=== PATIENT | female | born 1930 | race Caucasian/White ===

== ENCOUNTER → 2017-01-05 | Outpatient (CLI) | payer MEDICARE ==
[~2017-01-05] MED LIST: ASPIRIN325 M2 PO; ASPIRIN325 MG PO; ATENOLOL25 MG PO; ESTER-C 500 MG1 EACH PO; FISH OIL500 M1 PO; HYDR12.5C PO; HYDROCHLOROTH12.5 M3 PO; LIPITOR80 MG PO; NORVASC2.5 MG PO; RANITIDINE 7575 MG PO; RANITIDINE HCL300 M2 PO; TENORMIN25 M1 PO; VITAMIN D400 IU PO; VITAMIN D400 UNI1 PO
[2017-01-05 08:15] LABS: BASO % 0.5 % (0.0-1.0); EOS # 0.2 10*3/uL (0.0-0.4); EOS % 2.4 % (1.0-4.0); HEMATOCRIT 37.7 % (37.0-47.0); HEMOGLOBIN 12.3 g/dl (12.0-16.0); LYMPH # 3.6 10*3/uL (1.3-4.4); LYMPH % 47.1 % (27.0-41.0); MEAN CELL VOLUME 91.3 fl (81.0-99.0); MEAN CORPUSCULAR HGB 29.8 pg (27.0-31.0); MEAN CORPUSCULAR HGB CONC 32.6 g/dl (33.0-37.0); MONO # 0.5 10*3/uL (0.1-1.0); MONO % 6.6 % (3.0-9.0); NEUT # 3.3 10*3/uL (2.3-7.9); NEUT % 43.1 % (47.0-73.0); PLATELET COUNT AUTOMATED 153 10*3/uL (130-400); RED BLOOD COUNT 4.13 10*6/uL (4.10-5.10); RED CELL DISTRI WIDTH 14.1 % (0-14.5); WHITE BLOOD COUNT 7.5 10*3/uL (4.8-10.8)
[2017-01-05 08:43] LABS: ALBUMIN 3.8 gm/dl (3.1-4.5); ALKALINE PHOSPHATASE 65 U/L (45-117); BILIRUBIN, TOTAL 1.3 mg/dl (0.2-1.0); BUN 22 mg/dl (7-24); CARBON DIOXIDE 30 mmol/L (21-32); CHLORIDE 106 mmol/L (98-107); CHOLESTEROL 141 mg/dL (<200); CPK 291 U/L (26-192); EST GLOM FILT AFRICAN AMERICAN > 60 ml/min; GLUCOSE 98 mg/dL (65-99); HDL CHOLESTEROL 68 mg/dl (40-60); LDH 250 U/L (84-246); LDL CHOLESTEROL 55 mg/dL (9-159); SGOT/AST 24 IU/L (3-35); SGPT/ALT 32 U/L (12-78); SODIUM 142 mmol/L (136-145); TOTAL PROTEIN 6.6 gm/dL (6.4-8.2); TRIGLYCERIDES 90 mg/dl (<150); VLDL CHOLESTEROL 18 mg/dL (6-40)
== END | disposition home or self-care (01) ==
LOC: LAB 07:50
PROVIDERS: Internal Medicine Hematology & Oncology
DX: E78.00 Pure hypercholesterolemia, unspecified (principal); C85.81 Other specified types of non-Hodgkin lymphoma, lymph nodes of head, face, and neck; I25.10 Atherosclerotic heart disease of native coronary artery without angina pectoris; I10 Essential (primary) hypertension

== ENCOUNTER → 2017-08-06 | Outpatient (CLI) | payer MEDICARE | END | disposition home or self-care (01) | LOC: MAMMO 08:00 | DX: Z12.31 Encounter for screening mammogram for malignant neoplasm of breast (principal) ==

== ENCOUNTER → 2018-02-04 | Outpatient (CLI) | payer MEDICARE ==
[2018-02-04 08:14] LABS: HEMATOCRIT 38.3 % (37.0-47.0); HEMOGLOBIN 12.5 g/dl (12.0-16.0); MEAN CORPUSCULAR HGB 29.7 pg (27.0-31.0); MEAN CORPUSCULAR HGB CONC 32.6 g/dl (33.0-37.0); MEAN PLATELET VOLUME 10.7 fl (9.6-12.3); PLATELET COUNT AUTOMATED 151 10*3/uL (130-400); RED BLOOD COUNT 4.21 10*6/uL (4.10-5.10); RED CELL DISTRI WIDTH 13.9 % (0-14.5); WHITE BLOOD COUNT 10.1 10*3/uL (4.8-10.8)
[2018-02-04 09:21] LABS: CHLORIDE 105 mmol/L (98-107); POTASSIUM 3.7 mmol/L (3.5-5.1); SODIUM 140 mmol/L (136-145)
[2018-02-04 09:37] LABS: TOTAL CELLS COUNTED 100 #CELLS
[2018-02-04 09:39] LABS: PLATELET SUFFICIENCY NORMAL (NORMAL)
[2018-02-04 09:40] LABS: ALBUMIN 3.8 gm/dl (3.1-4.5); ALKALINE PHOSPHATASE 73 U/L (45-117); BUN 19 mg/dl (7-24); CHOLESTEROL 134 mg/dL (<200); CPK 344 U/L (26-192); CREATININE 0.61 mg/dL (0.55-1.02); HDL CHOLESTEROL 53 mg/dl (40-60); LDH 259 U/L (84-246); LDL CHOLESTEROL 59 mg/dL (9-159); SGOT/AST 27 IU/L (3-35); SGPT/ALT 33 U/L (12-78); TOTAL PROTEIN 6.5 gm/dL (6.4-8.2); TRIGLYCERIDES 110 mg/dl (<150); VLDL CHOLESTEROL 22 mg/dL (6-40)
== END | disposition home or self-care (01) ==
LOC: LAB 07:47
PROVIDERS: Internal Medicine Hematology & Oncology
DX: I10 Essential (primary) hypertension (principal); R73.9 Hyperglycemia, unspecified; E78.00 Pure hypercholesterolemia, unspecified; C85.81 Other specified types of non-Hodgkin lymphoma, lymph nodes of head, face, and neck

== ENCOUNTER → 2018-05-01 | Outpatient (CLI) | payer MEDICARE | END | disposition home or self-care (01) | LOC: US 10:31 | DX: M71.20 Synovial cyst of popliteal space [Baker], unspecified knee (principal) ==

== ENCOUNTER → 2018-08-18 | Outpatient (CLI) | payer MEDICARE ==
[2018-08-18 08:49] LABS: HEMATOCRIT 39.3 % (37.0-47.0); HEMOGLOBIN 12.8 g/dl (12.0-16.0); MEAN CELL VOLUME 92.3 fl (81.0-99.0); MEAN CORPUSCULAR HGB CONC 32.6 g/dl (33.0-37.0); PLATELET COUNT AUTOMATED 162 10*3/uL (130-400); RED BLOOD COUNT 4.26 10*6/uL (4.10-5.10); RED CELL DISTRI WIDTH 14.1 % (0-14.5); WHITE BLOOD COUNT 11.1 10*3/uL (4.8-10.8)
[2018-08-18 09:20] LABS: BUN 17 mg/dl (7-24); CHLORIDE 104 mmol/L (98-107); CREATININE 0.52 mg/dL (0.55-1.02); POTASSIUM 3.8 mmol/L (3.5-5.1); SODIUM 139 mmol/L (136-145)
[2018-08-18 09:49] LABS: ATYPICAL LYMPHS 2 % (0-0); BASOPHILS 1 % (0-1); PLATELET SUFFICIENCY NORMAL (NORMAL); TOTAL CELLS COUNTED 100 #CELLS
== END | disposition home or self-care (01) ==
LOC: LAB 08:12
PROVIDERS: Family Medicine; Internal Medicine Hematology & Oncology
DX: C85.81 Other specified types of non-Hodgkin lymphoma, lymph nodes of head, face, and neck (principal); R73.9 Hyperglycemia, unspecified

== ENCOUNTER → 2019-02-07 | Outpatient (CLI) | payer MEDICARE ==
[2019-02-07 09:38] LABS: HEMATOCRIT 42.3 % (37.0-47.0); HEMOGLOBIN 13.8 g/dl (12.0-16.0); MEAN CELL VOLUME 93.6 fl (81.0-99.0); MEAN CORPUSCULAR HGB 30.5 pg (27.0-31.0); MEAN CORPUSCULAR HGB CONC 32.6 g/dl (33.0-37.0); MEAN PLATELET VOLUME 11.2 fl (9.6-12.3); PLATELET COUNT AUTOMATED 217 10*3/uL (130-400); RED BLOOD COUNT 4.52 10*6/uL (4.10-5.10); RED CELL DISTRI WIDTH 13.9 % (0-14.5)
[2019-02-07 09:59] LABS: CHLORIDE 103 mmol/L (98-107); POTASSIUM 4.4 mmol/L (3.5-5.1); SODIUM 137 mmol/L (136-145)
[2019-02-07 10:11] LABS: PLATELET SUFFICIENCY NORMAL (NORMAL); TOTAL CELLS COUNTED 100 #CELLS
[2019-02-07 10:13] LABS: WHITE BLOOD COUNT 37.9 10*3/uL (4.8-10.8)
[2019-02-07 10:19] LABS: ALBUMIN 4.1 gm/dl (3.1-4.5); ALKALINE PHOSPHATASE 89 U/L (45-117); BUN 26 mg/dl (7-24); CREATININE 0.62 mg/dL (0.55-1.02); LDH 228 U/L (84-246); SGOT/AST 20 IU/L (3-35); SGPT/ALT 35 U/L (12-78); TOTAL PROTEIN 7.1 gm/dL (6.4-8.2)
[2019-02-07 10:36] LABS: CHOLESTEROL 148 mg/dL (<200); HDL CHOLESTEROL 67 mg/dl (40-60); LDL CHOLESTEROL 68 mg/dL (9-159); TRIGLYCERIDES 65 mg/dl (<150); VLDL CHOLESTEROL 13 mg/dL (6-40)
== END | disposition home or self-care (01) ==
LOC: LAB 08:52
PROVIDERS: Family Medicine; Internal Medicine Hematology & Oncology
DX: C85.81 Other specified types of non-Hodgkin lymphoma, lymph nodes of head, face, and neck (principal); I10 Essential (primary) hypertension; E78.00 Pure hypercholesterolemia, unspecified; R73.9 Hyperglycemia, unspecified

== ENCOUNTER → 2019-05-09 | Outpatient (CLI) | payer MEDICARE ==
[2019-05-09 09:16] LABS: HEMATOCRIT 36.8 % (37.0-47.0); HEMOGLOBIN 11.6 g/dl (12.0-16.0); MEAN CORPUSCULAR HGB CONC 31.5 g/dl (33.0-37.0); MEAN PLATELET VOLUME 11.2 fl (9.6-12.3); PLATELET COUNT AUTOMATED 134 10*3/uL (130-400); WHITE BLOOD COUNT 11.2 10*3/uL (4.8-10.8)
[2019-05-09 09:55] LABS: BURR CELLS FEW; TOTAL CELLS COUNTED 100 #CELLS
[2019-05-09 09:56] LABS: ACANTHOCYTES FEW; PLATELET SUFFICIENCY NORMAL (NORMAL)
== END | disposition home or self-care (01) ==
LOC: LAB 08:19
PROVIDERS: Internal Medicine Hematology & Oncology
DX: C85.81 Other specified types of non-Hodgkin lymphoma, lymph nodes of head, face, and neck (principal); C91.90 Lymphoid leukemia, unspecified not having achieved remission

== ENCOUNTER → 2019-07-20 | Outpatient (CLI) | payer MEDICARE ==
[~2019-07-20] MED LIST changes: +PEPCID20 MG PO
== END | disposition home or self-care (01) ==
LOC: CARD 09:48
DX: M25.50 Pain in unspecified joint (principal)

== ENCOUNTER → 2019-08-09 | Outpatient (CLI) | payer MEDICARE ==
--- NOTE | ~2019-08-09 | ST ---
[place], [place] EXERCISE STRESS TEST REPORT [id number] UN[facility] #: [id number] ROOM: DOCTOR: ASPEN SNYDER MD BIRTHDATE: [birth year] DOS: 08/09/2019 LEXISCAN PORTION OF THE LEXISCAN CARDIOLITE Baseline cardiogram, atrial fibrillation, slightly rapid ventricular response 0.4 mg of Lexiscan, duration of 10 seconds. Heart rate went up to 130. No chest discomfort. No other new EKG changes other than underlying atrial fibrillation. Blood pressure and heart rate normal. Nuclear will be reported separately. ASPEN SNYDER MD CM:STRESS:EXERCISE STRESS TEST REPORT [id number] ASPEN SNYDER MD
--- NOTE | 2019-08-09 07:05 | NUR ---
INFORMED SIGNED CONSENT OBTAINED FOR LEXISCAN STRESS TEST WITHSeamus SNYDER. RESTING EKG AFIB HR 91 BP 120/60. PULSE OX 99% LUNGS CLEAR. PT COMPLETED ONE MINUTE OF A LEXISCAN PROTOCOL WITH PT RECEIVING LEXISCAN 0.4MG IV OVER 10 SECONDS. RARE PVC NOTED NON DIAGNOSTIC ST CHANGES SEEN. PT FELT A LITTLE JITTERY WITH INJECTION. LAST RECOVERY HR OF 107 BP 110/54. PT IN STABLE CONDITION, AWAITING NUCLEAR IMAGES.
[2019-08-09 08:55] LABS: HEMATOCRIT 39.9 % (37.0-47.0); HEMOGLOBIN 12.4 g/dl (12.0-16.0); MEAN CELL VOLUME 90.1 fl (81.0-99.0); MEAN CORPUSCULAR HGB CONC 31.1 g/dl (33.0-37.0); MEAN PLATELET VOLUME 10.6 fl (9.6-12.3); PLATELET COUNT AUTOMATED 150 10*3/uL (130-400); RED BLOOD COUNT 4.43 10*6/uL (4.10-5.10); RED CELL DISTRI WIDTH 15.4 % (0-14.5); WHITE BLOOD COUNT 14.6 10*3/uL (4.8-10.8)
[2019-08-09 09:18] LABS: ALBUMIN 4.1 gm/dl (3.1-4.5); ALKALINE PHOSPHATASE 74 U/L (45-117); BUN 12 mg/dl (7-24); CHLORIDE 104 mmol/L (98-107); CREATININE 0.51 mg/dL (0.55-1.02); POTASSIUM 3.6 mmol/L (3.5-5.1); SGOT/AST 26 IU/L (3-35); SGPT/ALT 37 U/L (12-78); SODIUM 140 mmol/L (136-145); TOTAL PROTEIN 6.7 gm/dL (6.4-8.2)
[2019-08-09 09:21] LABS: LDH 266 U/L (84-246)
[2019-08-09 09:38] LABS: ACANTHOCYTES FEW; ATYPICAL LYMPHS 5 % (0-0); BASOPHILS 1 % (0-1); OVALOCYTES FEW; PLATELET SUFFICIENCY NORMAL (NORMAL); TOTAL CELLS COUNTED 100 #CELLS
== END | disposition home or self-care (01) ==
LOC: CARD 00:51 → LAB 00:51 → CARD 10:00
PROVIDERS: Internal Medicine Cardiovascular Disease
DX: I48.91 Unspecified atrial fibrillation (principal); R94.31 Abnormal electrocardiogram [ECG] [EKG]

== ENCOUNTER → 2019-08-12 | Outpatient (CLI) | payer MEDICARE | END | disposition home or self-care (01) | LOC: CT 00:17 | DX: C91.90 Lymphoid leukemia, unspecified not having achieved remission (principal); C85.81 Other specified types of non-Hodgkin lymphoma, lymph nodes of head, face, and neck; K80.20 Calculus of gallbladder without cholecystitis without obstruction; J90 Pleural effusion, not elsewhere classified; D73.4 Cyst of spleen; K76.89 Other specified diseases of liver; R59.9 Enlarged lymph nodes, unspecified ==

== ENCOUNTER 2019-09-29 09:29 | Inpatient (IN) | payer MEDICARE ==
[~2019-09-29] VITALS: Ht 163 cm; Wt 70.9 kg
[~2019-09-29 09:29] MED LIST changes: -ASPIRIN325 M2 PO; +GOOD SENSE ASPI81 M1 PO; +VITAMIN D250 MCG PO; -VITAMIN D400 IU PO
[2019-09-29 09:48] VITALS: BP 140/63
[2019-09-29 10:02] LABS: HEMATOCRIT 36.8 % (37.0-47.0); HEMOGLOBIN 12.1 g/dl (12.0-16.0); MEAN CELL VOLUME 88.7 fl (81.0-99.0); MEAN CORPUSCULAR HGB 29.2 pg (27.0-31.0); MEAN CORPUSCULAR HGB CONC 32.9 g/dl (33.0-37.0); MEAN PLATELET VOLUME 10.4 fl (9.6-12.3); PLATELET COUNT AUTOMATED 197 10*3/uL (130-400); RED BLOOD COUNT 4.15 10*6/uL (4.10-5.10); RED CELL DISTRI WIDTH 16.2 % (0-14.5); WHITE BLOOD COUNT 16.4 10*3/uL (4.8-10.8)
[2019-09-29 10:10] LABS: ACT PARTIAL THROMBO TIME 28.2 SECONDS (20.0-32.1); INTERNATIONAL NORM RATIO 1.1 (2.0-3.5)
[2019-09-29 10:19] LABS: ALKALINE PHOSPHATASE 78 U/L (45-117); BUN 12 mg/dl (7-24); CHLORIDE 97 mmol/L (98-107); POTASSIUM 3.5 mmol/L (3.5-5.1); SGOT/AST 24 IU/L (3-35); SGPT/ALT 37 U/L (12-78); SODIUM 130 mmol/L (136-145); TOTAL PROTEIN 6.4 gm/dL (6.4-8.2)
[2019-09-29 10:20] LABS: TROPONIN I < 0.015 ng/ml (<0.045)
[2019-09-29 10:22] LABS: ATYPICAL LYMPHS 3 % (0-0); BASOPHILS 1 % (0-1); TOTAL CELLS COUNTED 100 #CELLS
[2019-09-29 10:23] LABS: BURR CELLS FEW; PLATELET SUFFICIENCY NORMAL (NORMAL); SCHISTOCYTES FEW
[2019-09-29 10:24] LABS: OVALOCYTES FEW
--- NOTE | 2019-09-29 10:48 | NUR ---
BED ASSIGNED 419. THE ROOM NEEDS CLEANED, NSG TEMPORARY ADMINISTRATIVE ASSISTANT STATES STAFF WILL CALL ME WHEN THE ROOM IS AVAILIBLE.
[2019-09-29 11:00] VITALS: BP 136/60
--- NOTE | 2019-09-29 11:35 | NUR ---
STILL AWAITING RETURN CALL FOR BED AVAILIBILITY FOR ADMIT.
[2019-09-29 12:00] VITALS: BP 139/70
[2019-09-29 12:15] VITALS: BP 139/70
--- NOTE | 2019-09-29 12:15 | NUR ---
A 89, admitted to , under the services of CRISTEL Jimenez MD with a diagnosis of RECURRENT LEFT PLEURAL EFFUSION AND CHF. Chief complaint is SHORTNESS OF BREATH AND EDEMA. Patient arrived via bed from ER. Monitor applied. Initial assessment completed. Vital signs taken and recorded. CRISTEL JIMENEZ MD notified of admission to the unit. Orders received. See assessment for past medical history, medications and allergies. Patient and/or family oriented to unit. [facility] visitation policy reviewed. Clothing/patient valuable form completed. KARLEE SWARTZ
[2019-09-29] MEDS ORDERED: ELIQUIS2.5 M1 PO (13:05)
[2019-09-29] MEDS ORDERED: PHARMASSURE L-500 MG PO (13:06)
--- NOTE | 2019-09-29 13:45 | NUR ---
DR COELHO NOTIFIED THAT PT MED REC IS UP TO DATE AND THAT DNR CC PAPER NEEDS SIGNED IN CHART.
--- NOTE | 2019-09-29 14:05 | NUR ---
DR RUSH NOTIFIED OF CONSULT. PHYSICIAN STATES TO CONTINUE WITH DIURESIS AND SUPPLEMENTAL OXYGEN.
[2019-09-29 16:00] VITALS: BP 121/68
--- NOTE | 2019-09-29 16:45 | NUR ---
PT RESTING IN BED. NO S/S OF DISTRESS. NO COMPLAINTS ARE VOICED. RESPIRATIONS EASY AND UNLABORED ON 2L NC. ALL SAFETY MEASURES ARE IN PLACE. PT INSTRUCTED TO USE CALL LIGHT FOR ANY NEEDS. CALL LIGHT IN REACH.
--- NOTE | 2019-09-29 19:20 | NUR ---
REPORT RECEIVED FROM KARLEE FELIX. PT LYING IN BED AT THIS TIME. NO COMPLAINTS VOICED. CALL LIGHT IN REACH.
[2019-09-29 20:00] VITALS: BP 154/70
--- NOTE | 2019-09-29 21:34 | NUR ---
24 HR chart check completed.
[2019-09-30] VITALS: BP 143/70
--- NOTE | 2019-09-30 02:02 | NUR ---
24 HR chart check completed.
[2019-09-30 06:27] LABS: HEMATOCRIT 35.5 % (37.0-47.0); HEMOGLOBIN 11.4 g/dl (12.0-16.0); MEAN CELL VOLUME 88.3 fl (81.0-99.0); MEAN CORPUSCULAR HGB 28.4 pg (27.0-31.0); MEAN CORPUSCULAR HGB CONC 32.1 g/dl (33.0-37.0); MEAN PLATELET VOLUME 10.6 fl (9.6-12.3); PLATELET COUNT AUTOMATED 159 10*3/uL (130-400); RED BLOOD COUNT 4.02 10*6/uL (4.10-5.10); WHITE BLOOD COUNT 12.4 10*3/uL (4.8-10.8)
[2019-09-30 06:48] LABS: ACT PARTIAL THROMBO TIME 29.8 SECONDS (20.0-32.1); INTERNATIONAL NORM RATIO 1.1 (2.0-3.5)
[2019-09-30 06:50] LABS: ALBUMIN 3.8 gm/dl (3.1-4.5); ALKALINE PHOSPHATASE 70 U/L (45-117); BUN 12 mg/dl (7-24); CHLORIDE 97 mmol/L (98-107); CHOLESTEROL 120 mg/dL (<200); CREATININE 0.48 mg/dL (0.55-1.02); FREE T4 1.44 ng/dl (0.76-1.46); HDL CHOLESTEROL 59 mg/dl (40-60); LDL CHOLESTEROL 51 mg/dL (9-159); PHOSPHOROUS 3.8 mg/dL (2.5-4.9); POTASSIUM 3.1 mmol/L (3.5-5.1); SGOT/AST 23 IU/L (3-35); SGPT/ALT 34 U/L (12-78); SODIUM 135 mmol/L (136-145); TRIGLYCERIDES 50 mg/dl (<150); VLDL CHOLESTEROL 10 mg/dL (6-40)
[2019-09-30 07:08] LABS: ATYPICAL LYMPHS 2 % (0-0); PLATELET SUFFICIENCY NORMAL (NORMAL); TOTAL CELLS COUNTED 100 #CELLS
[2019-09-30 07:10] LABS: BURR CELLS FEW; OVALOCYTES FEW; SCHISTOCYTES FEW
[2019-09-30 07:47] LABS: VITAMIN D, 25-HYDROXY 43.7 ng/mL (30-100)
[2019-09-30 08:00] VITALS: BP 140/72
--- NOTE | 2019-09-30 08:00 | NUR ---
Patient resting quietly with no c/o discomfort. Respirations easy and regular. Vital signs stable. No overt distress. ILIANA PELAYO R
--- NOTE | 2019-09-30 09:40 | NUR ---
Occupational Therapy evaluation completed on 4 with full eval to follow. Precautions include fall risk, oxygen use, wh walker use,IV UE, low complexity level 78048. Recommend OT per POC for ADL training, ww safety in functional mobility, energy conservation/work simplification, standing tolerance. Recommend return home alone w/ family support and home health SN, OT,PT. Thank you. Vonnie Leggett Otr/l
--- NOTE | 2019-09-30 10:20 | NUR ---
AFTER DISCUSSION WITH SON AND DAUGHTER IN LAW, PT DECLINES ULTRASOUND. PER FAMILY LESION IS KNOWN AND IS UNCHANGED IN SIZE.
--- NOTE | 2019-09-30 10:50 | NUR ---
DR CAPUTO ON UNIT TO SEE PT AND NOTIFIED OF OF PT DECLINING OF US OF LIVER. HE STATES UNDERSTANDING
--- NOTE | 2019-09-30 11:20 | NUR ---
AFTER DISCUSSION WITH HER SON AND DAUGHTER IN LAW. PT DECLINES ULTRASOUND. LESION HAS BEEN ON PRIOR TESTING AND IN UNCHANGED IN SIZE PER FAMILY.
[2019-09-30 12:00] VITALS: BP 108/55
--- NOTE | 2019-09-30 13:23 | NUR ---
Home Appliances Mechanic in to talk to patient. Patient states lives at home with alone. There are no steps in the home. Physician: [facility]: [facility]: none Patient's level of ADLs: INDEPENDENT Patient has working utilities: all working DME: none Follow-up physician's appointment after d/c: will be made by hospitalist nurse director upon discharge Does patient want to access PORTAL?: no Discharge plan discussed with patient, daughter and patient's brother present, she states she lives at home, she is independnet in adls and ambulation, she states she does not use a walker for ambulation, she stated she would be returning home when medically stable, discussed with her VNA and she and daughter were receptive to this, given choice of companies she choose [facility], will send an order to [facility] for when patient is medically stable for discharge. RAFFAELE GRAMAJO
[2019-09-30 16:00] VITALS: BP 135/62
[2019-09-30 20:00] VITALS: BP 109/63
--- NOTE | 2019-09-30 23:51 | NUR ---
24 HR chart check completed.
[2019-10-01] VITALS: BP 109/63; BP 124/71
[2019-10-01 06:01] LABS: HEMATOCRIT 36.7 % (37.0-47.0); HEMOGLOBIN 11.9 g/dl (12.0-16.0); MEAN CELL VOLUME 89.1 fl (81.0-99.0); MEAN CORPUSCULAR HGB 28.9 pg (27.0-31.0); MEAN CORPUSCULAR HGB CONC 32.4 g/dl (33.0-37.0); MEAN PLATELET VOLUME 10.9 fl (9.6-12.3); PLATELET COUNT AUTOMATED 197 10*3/uL (130-400); RED BLOOD COUNT 4.12 10*6/uL (4.10-5.10); RED CELL DISTRI WIDTH 16.2 % (0-14.5); WHITE BLOOD COUNT 17.3 10*3/uL (4.8-10.8)
[2019-10-01 06:13] LABS: BUN 13 mg/dl (7-24); CHLORIDE 97 mmol/L (98-107); CREATININE 0.53 mg/dL (0.55-1.02); POTASSIUM 3.1 mmol/L (3.5-5.1); SODIUM 136 mmol/L (136-145)
[2019-10-01 06:45] LABS: ACANTHOCYTES FEW; BASOPHILS 1 % (0-1); PLATELET SUFFICIENCY NORMAL (NORMAL); TOTAL CELLS COUNTED 100 #CELLS
[2019-10-01 06:46] LABS: OVALOCYTES FEW
[2019-10-01 12:00] VITALS: BP 124/54
--- NOTE | 2019-10-01 13:00 | NUR ---
PHYSICAL THERAPY PT EVAL COMPLETED :FULL EVAL TO FOLLOW. RECOMMEND PT WHILE HERE TO ADDRESS DECREASED STRNEGTH AND FUNCTIONAL MOBILITY. PT EVAL IS MODERATE COMPLEXITY: 74884. D/C RECOMMENDATIONS ARE FOR SNF ON D/C TO ADDRESS DEFICITS IN STRENGTH AND MAXIMIZE FUNCTIONAL STATUS DUE TO LIVING ALONE AND HAVING STAIRS. THANK YOU FOR REFERRAL SUSANNA SALINAS PT
[2019-10-01 16:00] VITALS: BP 113/49
[2019-10-01 20:00] VITALS: BP 114/72
--- NOTE | 2019-10-01 20:17 | NUR ---
ASSUMED CARE FOR THIS PT AT THIS TIME. PT RESTING QUIETLY IN BED. DENIES ANY FURTHER SOB. CALL LIGHT IN REACH.
--- NOTE | 2019-10-01 23:30 | NUR ---
24 HR chart check completed.
[2019-10-02] VITALS: BP 119/53
--- NOTE | 2019-10-02 07:00 | NUR ---
REPORT RECEIVED FROM SHANTELL FELIX. PT AWAKE AT THIS TIME. VOICES NO COMPLAINTS, CALL LIGHT IN REACH.
[2019-10-02 08:00] VITALS: BP 122/62
[2019-10-02 08:26] LABS: HEMATOCRIT 38.2 % (37.0-47.0); HEMOGLOBIN 12.2 g/dl (12.0-16.0); MEAN CELL VOLUME 88.6 fl (81.0-99.0); MEAN CORPUSCULAR HGB 28.3 pg (27.0-31.0); MEAN CORPUSCULAR HGB CONC 31.9 g/dl (33.0-37.0); MEAN PLATELET VOLUME 10.1 fl (9.6-12.3); PLATELET COUNT AUTOMATED 178 10*3/uL (130-400); RED BLOOD COUNT 4.31 10*6/uL (4.10-5.10); RED CELL DISTRI WIDTH 15.9 % (0-14.5); WHITE BLOOD COUNT 19.3 10*3/uL (4.8-10.8)
[2019-10-02 08:40] LABS: ALKALINE PHOSPHATASE 75 U/L (45-117); BUN 13 mg/dl (7-24); CHLORIDE 96 mmol/L (98-107); CREATININE 0.57 mg/dL (0.55-1.02); POTASSIUM 3.2 mmol/L (3.5-5.1); SGOT/AST 17 IU/L (3-35); SGPT/ALT 29 U/L (12-78); SODIUM 134 mmol/L (136-145); TOTAL PROTEIN 6.3 gm/dL (6.4-8.2)
[2019-10-02 08:46] LABS: TOTAL CELLS COUNTED 100 #CELLS
[2019-10-02 08:47] LABS: ACANTHOCYTES FEW; OVALOCYTES FEW; PLATELET SUFFICIENCY NORMAL (NORMAL)
[2019-10-02 12:00] VITALS: BP 115/74
--- NOTE | 2019-10-02 12:00 | NUR ---
PT UP WITH FAMILY, NO COMPLAINTS AT THIS TIME.
--- NOTE | 2019-10-02 15:00 | NUR ---
DR. RUSH IN TO SEE PT.
[2019-10-02 16:00] VITALS: BP 116/68
--- NOTE | 2019-10-02 17:28 | NUR ---
PER DR RUSH, PT FOR A THORACENTESIS TOMORROW AT BEDSIDE
--- NOTE | 2019-10-02 19:35 | NUR ---
Patient resting quietly with no c/o discomfort. Respirations easy and regular. Vital signs stable. No overt distress. ANAIS AVERY
[2019-10-02 20:00] VITALS: BP 108/84
[2019-10-03] VITALS (7 sets, daily range): BP systolic 98–129; BP diastolic 52–68
--- NOTE | 2019-10-03 01:26 | NUR ---
24 HR CHART CHECK COMPLETED
--- NOTE | 2019-10-03 05:21 | NUR ---
PLEASE SIGN DNR ON PAPER CHART. THANK YOU.
--- NOTE | 2019-10-03 07:20 | NUR ---
REPORT RECEIVED FROM ARELI FELIX. PT AWAKE AT THIS TIME. VOICES NO COMPLAINTS. CALL LIGHT IN REACH.
--- NOTE | 2019-10-03 08:10 | NUR ---
PHYSICAL THERAPY Patient seen this am 1;1 for therapy visit and was supine in bed upon therapist arrival. Patient identified by name / and had several family memebers visiting this morning. OT assistant broker was also present during GLOBAL MARKETING MANAGER session as patient voices 4/10 L ankle pain folloiwng prolonged standing activities. Patient transfers supine to sit EOB with MIN A due to increased difficulty moving L LE. Patient needed a minute static EOB sit to collect herself prior to performing sit to stand transfer CGA x 1. Patient presents with weak L side hip flexor strength and instructed on "marching technique" during gait ex to improve safe step sequence. Patient ambulated with use of wh walker, CGA, 40'x 2, demonstrating intial uneven aleena, however to improve smoother step sequnce following v/c for BIG steps. Patient tolerated eyes open / closed x 10 seconds without LOB and was very cautious during all 90 / 180 turns. Patient returned to EOB sit with mild fatigue and instructed on seated therex, completing seated B LE therex, all planes x 15 reps each to increase LE strength. Patient transfers sit to supine MIN A and remained in bed with call light, tray table, telephone and bed alarm for safety. Will continue per POC as tolerated, total treatment time 23 minutes. Kameron Doan, MIAH
--- NOTE | 2019-10-03 08:20 | NUR ---
OT NOTE Pt was seen this A.M. 1:1 for 30 minute OT session. Upon arrival pt was supine in bed with family members at bedside. Pt identified by name and and had no complaints at this time rating her L ankle pain a 0/10 at rest. Pt transferred supine to sit EOB with Christiano for assist with LLE management. While sitting EOB pt doffed chemist steroids socks and donned new socks and tennis shoes with SBA. Pt completed multiple sit to stand transfers from bed level with CGA and use of w/w. Challenged pt's static standing tolerance needed for increased I in self care tasks and functional transfers, pt was able to tolerate aprox 4 minutes at a time before sitting due to fatigue. Functional mobility was then completed into the bathroom with CGA and use of w/w. There she transferred on/off elevated commode with CGA and education provided for proper hand placement which she had good carry over. Clothing management completed with CGA and toilet hygiene completed with SBA while seated. Pt then stood sink side while washing her hands and completing hair care with SBA. Functional mobility completed back to the EOB. Challenged pt's dynamic standing balance needed for enhanced safety in ADL tasks and set up of tasks. While weight shifting, crossing midline, and reaching over all planes pt was able to maintain F+ standing balance. Pt required education for steping closer to the item versus reaching out of base of support and was very fearful of falling when bending forwards, provided pt with education for safety awareness. Pt presented with good carry over. When transferring back into bed sit to supine pt required modA for managing her LLE. Pt was educated, demonstrated, and provided with a leg community relations rep. Pt then transferred sit to supine with SBA and use of the leg lift with her LLE. There she was left with call light in hand, tray table in place, and family still at bedside. COntinue with rec D/C plan to home with home health. CARMELA Montiel
--- NOTE | 2019-10-03 09:00 | NUR ---
case management visits with patient, she will be returning home when medically stable with [facility], case management will follow
--- NOTE | 2019-10-03 12:29 | NUR ---
PT CAN RECEIVE BLOOD THINNERS PER DR. RUSH
[2019-10-03 12:48] LABS: BODY FLUID WBC 3529 /uL
--- NOTE | 2019-10-03 13:00 | NUR ---
DR. DOSS NOTIFIED OF 98/60 BP. NO NEW ORDERS AT THIS TIME. JUST WATCH IT AND RECHECK IN 2 HOURS.
--- NOTE | 2019-10-03 13:25 | NUR ---
PHYSICAL THERAPY Patient seen this pm 1;1 for therapy visit and was joined by family member upon therapist arrival. Patient identified by name / and reports feeling a little tired following am medical procedure. Patient transfers supine to sit EOB and sit to stand CGA, transfering to [facility], [facility]. Patient instructed on safe stair negotiation, then navigated up / down 2 steps, B UE support on single handrail, MIN A, while demonstrating single step aleena and modified step sequence per patients preference while ascending with L LE. Patient returned to [facility] for transport back to room, then ambulated to bedside chair,15'x 1, wh walker, CGA, demonstrating slow, steady aleena and no c/o's pain. Patient remained in bedside chair semi reclined with LE's elevated, call light and telephone. Will continue per POC as tolerated, total treatment time 17 minutes. Kameron Doan, GUT CARRIER
[2019-10-03 13:41] LABS: BF LYMPHOCYTES 81 %; BF MACROPHAGES 15 %; BF NEUTROPHILS 4 %
--- NOTE | 2019-10-03 13:43 | NUR ---
OT NOTE Pt was seen this P.M. 1:1 for second OT session consisting of 15 minutes. Upon arrival pt was supine in bed. Pt identified by name and and had no complaints at this time. Pt transferred supine to sit EOB with SBA and use of leg associate editor for LLE. While sitting EOB pt donned B socks and shoes with SBA. Functional mobility was then completed around the room with SBA and use of w/w for UE support. Throughout pt was educated on energy conservation and work simplification techniques. Pt verbalized understanding. Pt was left sitting upright in the recliner with call light in hand, tray table in place, and family at bedside. Continue with rec D/C plan to home with home health. JENNIFFER Montiel/Gildardo
--- NOTE | 2019-10-03 20:07 | NUR ---
PATIENT RESTING IN BED. AWAKE & ORIENTED. VOICES NO COMPLAINTS AT THIS TIME. NO SIGNS OF DISTRESS. BED IN LOWEST POSITION CALL LIGHT WITHIN REACH. WILL COTNINUE TO BJ.
[2019-10-04] VITALS: BP 110/47
[2019-10-04 06:08] LABS: HEMATOCRIT 38.9 % (37.0-47.0); HEMOGLOBIN 12.7 g/dl (12.0-16.0); MEAN CELL VOLUME 87.4 fl (81.0-99.0); MEAN CORPUSCULAR HGB 28.5 pg (27.0-31.0); MEAN CORPUSCULAR HGB CONC 32.6 g/dl (33.0-37.0); MEAN PLATELET VOLUME 10.8 fl (9.6-12.3); PLATELET COUNT AUTOMATED 177 10*3/uL (130-400); RED BLOOD COUNT 4.45 10*6/uL (4.10-5.10); RED CELL DISTRI WIDTH 15.7 % (0-14.5); WHITE BLOOD COUNT 19.4 10*3/uL (4.8-10.8)
[2019-10-04 06:25] LABS: ALKALINE PHOSPHATASE 80 U/L (45-117); BUN 18 mg/dl (7-24); CHLORIDE 94 mmol/L (98-107); CREATININE 0.56 mg/dL (0.55-1.02); POTASSIUM 2.7 mmol/L (3.5-5.1); SGOT/AST 21 IU/L (3-35); SGPT/ALT 27 U/L (12-78); SODIUM 134 mmol/L (136-145); TOTAL PROTEIN 6.6 gm/dL (6.4-8.2)
--- NOTE | 2019-10-04 07:00 | NUR ---
REPORT RECEIVED FROM ILIANA FELIX. PT AWAKE AT THIS TIME. VOICES NO COMPLAINTS, CALL LIGHT IN REACH.
[2019-10-04 07:07] LABS: ACANTHOCYTES FEW; BASOPHILS 1 % (0-1); PLATELET SUFFICIENCY NORMAL (NORMAL); TOTAL CELLS COUNTED 100 #CELLS
--- NOTE | 2019-10-04 07:55 | NUR ---
OT NOTE Pt was seen this A.M. 1:1 for 15 minute OT session. Upon arrival pt was sitting upright in the recliner. Pt identified by name and and had complaints of 5/10 L foot pain. Pt completed sit to stand transfer from chair level with Christiano and use of w/w for UE support. Functional mobility was then completed into the bathroom with CGA and use of w/w. There she transferred on/off elevated commode with CGA for safety. Clothing management and toilet hygiene completed with CGA. She then stood sink side while washing her hands with CGA. Functional mobility completed back to the EOB. There she transferred sit to supine with SBA and use of leg lift for LLE. Pt was left supine in bed with call light in hand, tray table in place, and phone in reach. Continue with rec D/C plan to home with home health. JENNIFFER Montiel/Gildardo
[2019-10-04 08:00] VITALS: BP 102/52
--- NOTE | 2019-10-04 08:00 | NUR ---
DR. SNYDER IN TO SEE PT
[2019-10-04 09:19] VITALS: BP 120/58
--- NOTE | 2019-10-04 09:46 | NUR ---
PHYSICAL THERAPY Patient seen this am 1:1 for therapy visit and was sitting up in bedside chair upon therapist arrival. Patient identified by name / and reports 5/10 L foot pain which patient states has been chronic the past few months. Patient transfers sit to stand SBA and ambulates with use of wh walker, CGA, 25'x 1 to bathroom, demonstrating slow, antalgic gait pattern. Patient returned 15 'x 1 to EOB sit and reviewed seated B LE therex per HEP. Patient received copy of HEP and voiced her understanding of each ex in anticipation of being d/c to home. Patient returned to supine in bed and remained with call light, tray table, and telephone. Will continue per POC as tolerated, total treatment time 16 minutes. Kameron Doan, PROFESSOR OF GERMAN
--- NOTE | 2019-10-04 10:51 | NUR ---
PT LYING IN BED RELAXING. NO COMPLAINTS.
--- NOTE | 2019-10-04 11:30 | NUR ---
case management talked with Ashley at [facility], educated her that patient is a discharge for today, patient has no one needs at this time
[2019-10-04] MEDS ORDERED: LASIX20 MG PO (12:17)
[2019-10-04] MEDS ORDERED: K-TAB20 MEQ PO (12:17)
--- NOTE | 2019-10-04 13:00 | NUR ---
Discharge instructions reviewed with patient/family. Patient receptive and verbalizes understanding. Follow-up care arranged. Written instructions given to patient/family. HARJEET TOVAR
--- NOTE | 2019-10-06 07:47 | NUR ---
PHYSICAL THERAPY CO-SIGN I approve of the Physical Therapy notes written above. Lynne Gray PT
--- NOTE | 2019-10-06 16:50 | NUR ---
OCCUPATIONAL THERAPY CO-SIGN I approve of the Occupational Therapy notes written above. AMBREEN BOB OTR/Gildardo
== END 2019-10-04 13:00 | disposition home health service (06) | DRG 187 ==
LOC: ED 09:29 → EDHOLD 10:39 → 4E 10:39
PROVIDERS: Emergency Medicine; Family Medicine; Hospitalist; Internal Medicine; Internal Medicine Critical Care Medicine; ADMIT Emergency Medicine
PROC: 0W9B30Z Drainage of Left Pleural Cavity with Drainage Device, Percutaneous Approach (ICD-10-PCS; principal; 2019-10-03)
DX: J91.8 Pleural effusion in other conditions classified elsewhere (principal); E87.1 Hypo-osmolality and hyponatremia; C91.10 Chronic lymphocytic leukemia of B-cell type not having achieved remission; J98.11 Atelectasis; I48.21 Permanent atrial fibrillation; I11.0 Hypertensive heart disease with heart failure; I50.9 Heart failure, unspecified; E80.6 Other disorders of bilirubin metabolism; E55.9 Vitamin D deficiency, unspecified; E87.8 Other disorders of electrolyte and fluid balance, not elsewhere classified; K76.9 Liver disease, unspecified; E87.6 Hypokalemia; R73.9 Hyperglycemia, unspecified; I25.10 Atherosclerotic heart disease of native coronary artery without angina pectoris; Z66 Do not resuscitate; Z51.5 Encounter for palliative care; Z96.1 Presence of intraocular lens; Z79.01 Long term (current) use of anticoagulants; Z88.1 Allergy status to other antibiotic agents; Z88.8 Allergy status to other drugs, medicaments and biological substances; Z90.710 Acquired absence of both cervix and uterus; Z95.5 Presence of coronary angioplasty implant and graft; I25.2 Old myocardial infarction; Z79.82 Long term (current) use of aspirin; Z79.899 Other long term (current) drug therapy; Z98.42 Cataract extraction status, left eye; Z98.41 Cataract extraction status, right eye

== ENCOUNTER → 2019-10-27 | Outpatient (CLI) | payer MEDICARE ==
[~2019-10-27] MED LIST changes: +ELIQUIS2.5 M1 PO; +K-TAB20 MEQ PO; +LASIX20 MG PO; +PHARMASSURE L-500 MG PO
== END | disposition home or self-care (01) ==
LOC: US 14:11
DX: R60.0 Localized edema (principal); R59.0 Localized enlarged lymph nodes

== ENCOUNTER → 2019-11-01 | Outpatient (CLI) | payer MEDICARE ==
[2019-11-01 11:23] LABS: BASO % 0.4 % (0.0-1.0); EOS % 0.6 % (1.0-4.0); HEMATOCRIT 39.2 % (37.0-47.0); HEMOGLOBIN 12.4 g/dl (12.0-16.0); LYMPH # 3.9 10*3/uL (1.3-4.4); LYMPH % 56.9 % (27.0-41.0); MEAN CELL VOLUME 89.3 fl (81.0-99.0); MEAN CORPUSCULAR HGB 28.2 pg (27.0-31.0); MEAN CORPUSCULAR HGB CONC 31.6 g/dl (33.0-37.0); MEAN PLATELET VOLUME 11.5 fl (9.6-12.3); MONO # 0.6 10*3/uL (0.1-1.0); MONO % 8.6 % (3.0-9.0); NEUT # 2.3 10*3/uL (2.3-7.9); NEUT % 33.4 % (47.0-73.0); PLATELET COUNT AUTOMATED 150 10*3/uL (130-400); RED BLOOD COUNT 4.39 10*6/uL (4.10-5.10); RED CELL DISTRI WIDTH 15.4 % (0-14.5); WHITE BLOOD COUNT 6.9 10*3/uL (4.8-10.8)
[2019-11-01 11:48] LABS: BUN 18 mg/dl (7-24); CHLORIDE 103 mmol/L (98-107); CREATININE 0.52 mg/dL (0.55-1.02); POTASSIUM 3.4 mmol/L (3.5-5.1); SGOT/AST 22 IU/L (3-35); SGPT/ALT 35 U/L (12-78); SODIUM 139 mmol/L (136-145)
[2019-11-01 11:50] LABS: ALKALINE PHOSPHATASE 68 U/L (45-117); LDH 267 U/L (84-246); TOTAL PROTEIN 6.7 gm/dL (6.4-8.2)
== END | disposition home or self-care (01) ==
LOC: LAB 10:54
PROVIDERS: Internal Medicine Hematology & Oncology
DX: Z51.11 Encounter for antineoplastic chemotherapy (principal); C85.81 Other specified types of non-Hodgkin lymphoma, lymph nodes of head, face, and neck; C91.90 Lymphoid leukemia, unspecified not having achieved remission; R11.2 Nausea with vomiting, unspecified

== ENCOUNTER → 2019-11-08 | Outpatient (CLI) | payer MEDICARE ==
[2019-11-08 10:09] LABS: BASO # 0.1 10*3/uL (0.0-0.1); BASO % 0.6 % (0.0-1.0); EOS # 0.1 10*3/uL (0.0-0.4); HEMATOCRIT 38.9 % (37.0-47.0); HEMOGLOBIN 12.2 g/dl (12.0-16.0); LYMPH # 4.3 10*3/uL (1.3-4.4); LYMPH % 52.9 % (27.0-41.0); MEAN CELL VOLUME 90.5 fl (81.0-99.0); MEAN CORPUSCULAR HGB 28.4 pg (27.0-31.0); MEAN CORPUSCULAR HGB CONC 31.4 g/dl (33.0-37.0); MEAN PLATELET VOLUME 11.1 fl (9.6-12.3); MONO # 0.7 10*3/uL (0.1-1.0); MONO % 8.6 % (3.0-9.0); NEUT % 36.7 % (47.0-73.0); PLATELET COUNT AUTOMATED 177 10*3/uL (130-400); WHITE BLOOD COUNT 8.1 10*3/uL (4.8-10.8)
== END | disposition home or self-care (01) ==
LOC: LAB 00:46
PROVIDERS: Internal Medicine Hematology & Oncology
DX: Z51.11 Encounter for antineoplastic chemotherapy (principal); C85.81 Other specified types of non-Hodgkin lymphoma, lymph nodes of head, face, and neck; C91.90 Lymphoid leukemia, unspecified not having achieved remission; R11.2 Nausea with vomiting, unspecified

== ENCOUNTER → 2019-11-15 | Outpatient (CLI) | payer MEDICARE ==
[2019-11-15 12:56] LABS: BASO % 0.4 % (0.0-1.0); EOS # 0.1 10*3/uL (0.0-0.4); EOS % 1.3 % (1.0-4.0); LYMPH % 43.8 % (27.0-41.0); MEAN CORPUSCULAR HGB 27.8 pg (27.0-31.0); MEAN CORPUSCULAR HGB CONC 31.6 g/dl (33.0-37.0); MONO # 0.6 10*3/uL (0.1-1.0); MONO % 8.7 % (3.0-9.0); NEUT # 3.1 10*3/uL (2.3-7.9); NEUT % 45.7 % (47.0-73.0); PLATELET COUNT AUTOMATED 143 10*3/uL (130-400); RED BLOOD COUNT 4.32 10*6/uL (4.10-5.10); RED CELL DISTRI WIDTH 14.3 % (0-14.5); WHITE BLOOD COUNT 6.9 10*3/uL (4.8-10.8)
== END | disposition home or self-care (01) ==
LOC: LAB 05:27
PROVIDERS: Internal Medicine Hematology & Oncology
DX: Z51.11 Encounter for antineoplastic chemotherapy (principal); C85.81 Other specified types of non-Hodgkin lymphoma, lymph nodes of head, face, and neck; C91.90 Lymphoid leukemia, unspecified not having achieved remission; R11.2 Nausea with vomiting, unspecified

== ENCOUNTER → 2019-12-07 | Outpatient (CLI) | payer MEDICARE | END | disposition home or self-care (01) | LOC: CT 00:03 | DX: C85.81 Other specified types of non-Hodgkin lymphoma, lymph nodes of head, face, and neck (principal); C91.90 Lymphoid leukemia, unspecified not having achieved remission; J43.9 Emphysema, unspecified; J90 Pleural effusion, not elsewhere classified; I25.10 Atherosclerotic heart disease of native coronary artery without angina pectoris; Z51.11 Encounter for antineoplastic chemotherapy ==

== ENCOUNTER → 2020-02-03 | Outpatient (CLI) | payer MEDICARE | END | disposition home or self-care (01) | LOC: RAD 00:08 | DX: J44.9 Chronic obstructive pulmonary disease, unspecified (principal); J90 Pleural effusion, not elsewhere classified ==

== ENCOUNTER → 2020-04-13 | Outpatient (CLI) | payer MEDICARE | END | disposition home or self-care (01) | LOC: CT 03:30 | DX: C85.81 Other specified types of non-Hodgkin lymphoma, lymph nodes of head, face, and neck (principal); C91.90 Lymphoid leukemia, unspecified not having achieved remission; R11.2 Nausea with vomiting, unspecified; J90 Pleural effusion, not elsewhere classified; Z51.11 Encounter for antineoplastic chemotherapy ==

== ENCOUNTER 2020-05-06 11:00 | Emergency (ER) | payer MEDICARE ==
[~2020-05-06] VITALS: Ht 162.5 cm; Wt 69.9 kg
[2020-05-06 11:07] VITALS: BP 150/60
[2020-05-06 11:39] LABS: BASO % 0.8 % (0.0-1.0); EOS # 0.1 10*3/uL (0.0-0.4); EOS % 1.7 % (1.0-4.0); HEMATOCRIT 38.8 % (37.0-47.0); LYMPH # 0.7 10*3/uL (1.3-4.4); LYMPH % 20.7 % (27.0-41.0); MEAN CELL VOLUME 86.2 fl (81.0-99.0); MEAN CORPUSCULAR HGB 28.4 pg (27.0-31.0); MEAN PLATELET VOLUME 10.4 fl (9.6-12.3); MONO # 0.4 10*3/uL (0.1-1.0); MONO % 10.9 % (3.0-9.0); NEUT # 2.4 10*3/uL (2.3-7.9); NEUT % 65.9 % (47.0-73.0); PLATELET COUNT AUTOMATED 141 10*3/uL (130-400); RED CELL DISTRI WIDTH 15.1 % (0-14.5); WHITE BLOOD COUNT 3.6 10*3/uL (4.8-10.8)
[2020-05-06 11:48] LABS: INTERNATIONAL NORM RATIO 1.1 (2.0-3.5)
[2020-05-06 11:53] LABS: ALBUMIN 4.1 gm/dl (3.1-4.5); ALKALINE PHOSPHATASE 69 U/L (45-117); BUN 13 mg/dl (7-24); CHLORIDE 103 mmol/L (98-107); CREATININE 0.42 mg/dL (0.55-1.02); POTASSIUM 3.8 mmol/L (3.5-5.1); SGOT/AST 22 IU/L (3-35); SGPT/ALT 40 U/L (12-78); SODIUM 136 mmol/L (136-145); TOTAL PROTEIN 6.5 gm/dL (6.4-8.2)
[2020-05-06] MEDS ORDERED: DICLOXACILLIN500 M1 PO (12:27)
== END 2020-05-06 12:25 | disposition home or self-care (01) ==
LOC: ED 11:00
PROVIDERS: Physician Assistant
DX: M79.89 Other specified soft tissue disorders (principal); L53.9 Erythematous condition, unspecified; Z88.1 Allergy status to other antibiotic agents; Z88.8 Allergy status to other drugs, medicaments and biological substances; Z79.899 Other long term (current) drug therapy; Z79.82 Long term (current) use of aspirin

== ENCOUNTER → 2020-05-28 | Outpatient (CLI) | payer MEDICARE ==
[~2020-05-28] MED LIST changes: +DICLOXACILLIN500 M1 PO
== END | disposition home or self-care (01) ==
LOC: LAB 10:05
PROVIDERS: Internal Medicine Cardiovascular Disease
DX: I48.91 Unspecified atrial fibrillation (principal)

== ENCOUNTER → 2020-08-29 | Outpatient (CLI) | payer MEDICARE ==
[2020-08-29 09:41] LABS: BASO % 0.6 % (0.0-1.0); EOS # 0.1 10*3/uL (0.0-0.4); EOS % 1.3 % (1.0-4.0); HEMATOCRIT 38.4 % (37.0-47.0); LYMPH # 1.4 10*3/uL (1.3-4.4); LYMPH % 25.5 % (27.0-41.0); MEAN CELL VOLUME 89.5 fl (81.0-99.0); MEAN CORPUSCULAR HGB 29.1 pg (27.0-31.0); MEAN CORPUSCULAR HGB CONC 32.6 g/dl (33.0-37.0); MEAN PLATELET VOLUME 10.6 fl (9.6-12.3); MONO # 0.6 10*3/uL (0.1-1.0); MONO % 10.5 % (3.0-9.0); NEUT # 3.3 10*3/uL (2.3-7.9); NEUT % 61.7 % (47.0-73.0); PLATELET COUNT AUTOMATED 143 10*3/uL (130-400); RED BLOOD COUNT 4.29 10*6/uL (4.10-5.10); RED CELL DISTRI WIDTH 15.1 % (0-14.5); WHITE BLOOD COUNT 5.3 10*3/uL (4.8-10.8)
[2020-08-29 10:51] LABS: ALBUMIN 4.1 gm/dl (3.1-4.5); ALKALINE PHOSPHATASE 69 U/L (45-117); BUN 12 mg/dl (7-24); CHLORIDE 105 mmol/L (98-107); CREATININE 0.33 mg/dL (0.55-1.02); LDH 256 U/L (84-246); POTASSIUM 4.2 mmol/L (3.5-5.1); SGOT/AST 23 IU/L (3-35); SGPT/ALT 28 U/L (12-78); SODIUM 138 mmol/L (136-145); TOTAL PROTEIN 6.9 gm/dL (6.4-8.2)
== END | disposition home or self-care (01) ==
LOC: LAB 09:18
PROVIDERS: ATTEND Internal Medicine Hematology & Oncology
DX: Z51.11 Encounter for antineoplastic chemotherapy (principal); R11.2 Nausea with vomiting, unspecified; J90 Pleural effusion, not elsewhere classified; C85.81 Other specified types of non-Hodgkin lymphoma, lymph nodes of head, face, and neck; C91.90 Lymphoid leukemia, unspecified not having achieved remission

== ENCOUNTER → 2020-09-03 | Outpatient (CLI) | payer MEDICARE | END | disposition home or self-care (01) | LOC: CT 00:31 → LAB 09:00 | PROVIDERS: ATTEND Internal Medicine Hematology & Oncology | DX: J43.9 Emphysema, unspecified (principal); C85.81 Other specified types of non-Hodgkin lymphoma, lymph nodes of head, face, and neck; C91.90 Lymphoid leukemia, unspecified not having achieved remission; R11.2 Nausea with vomiting, unspecified; J90 Pleural effusion, not elsewhere classified; K76.89 Other specified diseases of liver; Q89.09 Congenital malformations of spleen; K82.8 Other specified diseases of gallbladder; N28.89 Other specified disorders of kidney and ureter; K57.30 Diverticulosis of large intestine without perforation or abscess without bleeding; I25.10 Atherosclerotic heart disease of native coronary artery without angina pectoris; R59.0 Localized enlarged lymph nodes ==

== ENCOUNTER → 2020-12-27 | Outpatient (CLI) | payer MEDICARE ==
[2020-12-27 10:41] LABS: HEMATOCRIT 38.7 % (37.0-47.0); MEAN CELL VOLUME 91.9 fl (81.0-99.0); MEAN CORPUSCULAR HGB 29.5 pg (27.0-31.0); MEAN PLATELET VOLUME 10.6 fl (9.6-12.3); PLATELET COUNT AUTOMATED 141 10*3/uL (130-400); RED BLOOD COUNT 4.21 10*6/uL (4.10-5.10); RED CELL DISTRI WIDTH 14.5 % (0-14.5); WHITE BLOOD COUNT 5.9 10*3/uL (4.8-10.8)
[2020-12-27 11:15] LABS: ATYPICAL LYMPHS 1 % (0-0); PLATELET SUFFICIENCY NORMAL (NORMAL); TOTAL CELLS COUNTED 100 #CELLS
[2020-12-27 11:19] LABS: ALBUMIN 3.9 gm/dl (3.1-4.5); ALKALINE PHOSPHATASE 73 U/L (45-117); BUN 16 mg/dl (7-24); CHLORIDE 105 mmol/L (98-107); CREATININE 0.49 mg/dL (0.55-1.02); LDH 271 U/L (84-246); POTASSIUM 4.6 mmol/L (3.5-5.1); SGOT/AST 24 IU/L (3-35); SGPT/ALT 36 U/L (12-78); SODIUM 139 mmol/L (136-145); TOTAL PROTEIN 6.6 gm/dL (6.4-8.2)
== END | disposition home or self-care (01) ==
LOC: LAB 10:17
PROVIDERS: ATTEND Internal Medicine Hematology & Oncology
DX: Z51.11 Encounter for antineoplastic chemotherapy (principal); C85.81 Other specified types of non-Hodgkin lymphoma, lymph nodes of head, face, and neck; C91.90 Lymphoid leukemia, unspecified not having achieved remission; R11.2 Nausea with vomiting, unspecified; J90 Pleural effusion, not elsewhere classified

== ENCOUNTER 2021-03-13 11:08 | Emergency (ER) | payer MEDICARE ==
[~2021-03-13] VITALS: Wt 72.6 kg
[2021-03-13 14:45] VITALS: BP 164/70
== END 2021-03-13 15:04 | disposition home or self-care (01) ==
LOC: ED 11:08
DX: M79.662 Pain in left lower leg (principal); Z79.899 Other long term (current) drug therapy; Z98.890 Other specified postprocedural states; Z90.711 Acquired absence of uterus with remaining cervical stump; Z95.818 Presence of other cardiac implants and grafts

== ENCOUNTER → 2021-03-18 | Outpatient (CLI) | payer MEDICARE ==
[2021-03-18 07:32] LABS: HEMATOCRIT 37.6 % (37.0-47.0); MEAN CELL VOLUME 89.3 fl (81.0-99.0); MEAN CORPUSCULAR HGB 29.2 pg (27.0-31.0); MEAN CORPUSCULAR HGB CONC 32.7 g/dl (33.0-37.0); MEAN PLATELET VOLUME 10.5 fl (9.6-12.3); PLATELET COUNT AUTOMATED 142 10*3/uL (130-400); RED BLOOD COUNT 4.21 10*6/uL (4.10-5.10); RED CELL DISTRI WIDTH 15.3 % (0-14.5); WHITE BLOOD COUNT 6.5 10*3/uL (4.8-10.8)
[2021-03-18 07:55] LABS: BASOPHILS 2 % (0-1); BURR CELLS FEW; PLATELET SUFFICIENCY NORMAL (NORMAL); POLYCHROMASIA SLIGHT; TOTAL CELLS COUNTED 100 #CELLS
[2021-03-18 08:02] LABS: ALBUMIN 3.7 gm/dl (3.1-4.5); ALKALINE PHOSPHATASE 84 U/L (45-117); BUN 15 mg/dl (7-24); CHLORIDE 104 mmol/L (98-107); CHOLESTEROL 135 mg/dL (<200); CREATININE 0.36 mg/dL (0.55-1.02); LDH 267 U/L (84-246); LDL CHOLESTEROL 59 mg/dL (9-159); POTASSIUM 4.2 mmol/L (3.5-5.1); SGOT/AST 23 IU/L (3-35); SGPT/ALT 28 U/L (12-78); SODIUM 135 mmol/L (136-145); TOTAL PROTEIN 6.5 gm/dL (6.4-8.2); TRIGLYCERIDES 63 mg/dl (<150)
== END | disposition home or self-care (01) ==
LOC: LAB 07:16
PROVIDERS: ATTEND Internal Medicine Hematology & Oncology
DX: Z51.11 Encounter for antineoplastic chemotherapy (principal); C85.81 Other specified types of non-Hodgkin lymphoma, lymph nodes of head, face, and neck; C91.90 Lymphoid leukemia, unspecified not having achieved remission; R11.2 Nausea with vomiting, unspecified; J90 Pleural effusion, not elsewhere classified; Z79.899 Other long term (current) drug therapy

== ENCOUNTER → 2021-04-30 | Outpatient (CLI) | payer MEDICARE ==
[2021-04-30 08:47] LABS: BASO % 0.6 % (0.0-1.0); EOS # 0.2 10*3/uL (0.0-0.4); HEMATOCRIT 36.7 % (37.0-47.0); LYMPH # 1.1 10*3/uL (1.3-4.4); LYMPH % 21.3 % (27.0-41.0); MEAN CELL VOLUME 87.8 fl (81.0-99.0); MEAN CORPUSCULAR HGB 28.9 pg (27.0-31.0); MEAN PLATELET VOLUME 10.7 fl (9.6-12.3); MONO # 0.5 10*3/uL (0.1-1.0); NEUT # 3.5 10*3/uL (2.3-7.9); NEUT % 64.9 % (47.0-73.0); PLATELET COUNT AUTOMATED 136 10*3/uL (130-400); RED BLOOD COUNT 4.18 10*6/uL (4.10-5.10); RED CELL DISTRI WIDTH 14.9 % (0-14.5); WHITE BLOOD COUNT 5.3 10*3/uL (4.8-10.8)
[2021-04-30 09:12] LABS: ALKALINE PHOSPHATASE 82 U/L (45-117); BUN 13 mg/dl (7-24); CHLORIDE 103 mmol/L (98-107); CREATININE 0.39 mg/dL (0.55-1.02); POTASSIUM 4.3 mmol/L (3.5-5.1); SGOT/AST 31 IU/L (3-35); SGPT/ALT 46 U/L (12-78); SODIUM 135 mmol/L (136-145); TOTAL PROTEIN 6.4 gm/dL (6.4-8.2)
== END | disposition home or self-care (01) ==
LOC: LAB 08:30
PROVIDERS: ATTEND Internal Medicine Hematology & Oncology
DX: Z51.11 Encounter for antineoplastic chemotherapy (principal); C85.81 Other specified types of non-Hodgkin lymphoma, lymph nodes of head, face, and neck; C91.90 Lymphoid leukemia, unspecified not having achieved remission; R11.2 Nausea with vomiting, unspecified; J90 Pleural effusion, not elsewhere classified

== ENCOUNTER → 2021-05-06 | Outpatient (CLI) | payer MEDICARE ==
[2021-05-06 09:45] LABS: BASO # 0.1 10*3/uL (0.0-0.1); BASO % 0.9 % (0.0-1.0); EOS # 0.2 10*3/uL (0.0-0.4); EOS % 4.1 % (1.0-4.0); HEMATOCRIT 38.8 % (37.0-47.0); LYMPH # 1.3 10*3/uL (1.3-4.4); LYMPH % 24.1 % (27.0-41.0); MEAN CELL VOLUME 87.8 fl (81.0-99.0); MEAN CORPUSCULAR HGB 28.7 pg (27.0-31.0); MEAN CORPUSCULAR HGB CONC 32.7 g/dl (33.0-37.0); MEAN PLATELET VOLUME 10.8 fl (9.6-12.3); MONO # 0.5 10*3/uL (0.1-1.0); MONO % 8.5 % (3.0-9.0); NEUT # 3.4 10*3/uL (2.3-7.9); NEUT % 62.2 % (47.0-73.0); PLATELET COUNT AUTOMATED 163 10*3/uL (130-400); RED BLOOD COUNT 4.42 10*6/uL (4.10-5.10); RED CELL DISTRI WIDTH 14.7 % (0-14.5); WHITE BLOOD COUNT 5.4 10*3/uL (4.8-10.8)
[2021-05-06 09:59] LABS: ALBUMIN 4.2 gm/dl (3.1-4.5); ALKALINE PHOSPHATASE 86 U/L (45-117); BUN 12 mg/dl (7-24); CHLORIDE 105 mmol/L (98-107); CREATININE 0.38 mg/dL (0.55-1.02); LDH 281 U/L (84-246); POTASSIUM 4.3 mmol/L (3.5-5.1); SGOT/AST 25 IU/L (3-35); SGPT/ALT 46 U/L (12-78); SODIUM 136 mmol/L (136-145); TOTAL PROTEIN 6.8 gm/dL (6.4-8.2)
== END | disposition home or self-care (01) ==
LOC: LAB 09:18
PROVIDERS: ATTEND Internal Medicine Hematology & Oncology
DX: Z51.11 Encounter for antineoplastic chemotherapy (principal); C85.81 Other specified types of non-Hodgkin lymphoma, lymph nodes of head, face, and neck; C91.90 Lymphoid leukemia, unspecified not having achieved remission; R11.2 Nausea with vomiting, unspecified; J90 Pleural effusion, not elsewhere classified

== ENCOUNTER → 2021-05-13 | Outpatient (CLI) | payer MEDICARE ==
[2021-05-13 09:52] LABS: BASO # 0.1 10*3/uL (0.0-0.1); EOS # 0.2 10*3/uL (0.0-0.4); EOS % 3.7 % (1.0-4.0); LYMPH % 20.5 % (27.0-41.0); MEAN CELL VOLUME 86.5 fl (81.0-99.0); MEAN CORPUSCULAR HGB 28.4 pg (27.0-31.0); MEAN CORPUSCULAR HGB CONC 32.8 g/dl (33.0-37.0); MEAN PLATELET VOLUME 10.6 fl (9.6-12.3); MONO # 0.5 10*3/uL (0.1-1.0); MONO % 11.1 % (3.0-9.0); NEUT # 3.1 10*3/uL (2.3-7.9); NEUT % 63.5 % (47.0-73.0); PLATELET COUNT AUTOMATED 154 10*3/uL (130-400); RED BLOOD COUNT 4.51 10*6/uL (4.10-5.10); RED CELL DISTRI WIDTH 14.3 % (0-14.5); WHITE BLOOD COUNT 4.9 10*3/uL (4.8-10.8)
[2021-05-13 10:08] LABS: ALBUMIN 4.2 gm/dl (3.1-4.5); ALKALINE PHOSPHATASE 78 U/L (45-117); BUN 17 mg/dl (7-24); CHLORIDE 103 mmol/L (98-107); CREATININE 0.47 mg/dL (0.55-1.02); POTASSIUM 4.3 mmol/L (3.5-5.1); SGOT/AST 25 IU/L (3-35); SGPT/ALT 36 U/L (12-78); SODIUM 136 mmol/L (136-145); TOTAL PROTEIN 6.8 gm/dL (6.4-8.2)
== END | disposition home or self-care (01) ==
LOC: LAB 09:26
PROVIDERS: ATTEND Internal Medicine Hematology & Oncology
DX: Z51.11 Encounter for antineoplastic chemotherapy (principal); C85.81 Other specified types of non-Hodgkin lymphoma, lymph nodes of head, face, and neck; C91.90 Lymphoid leukemia, unspecified not having achieved remission; R11.2 Nausea with vomiting, unspecified; J90 Pleural effusion, not elsewhere classified

== ENCOUNTER → 2021-07-29 | Outpatient (CLI) | payer MEDICARE ==
[2021-07-29 07:50] LABS: BASO % 0.3 % (0.0-1.0); EOS # 0.1 10*3/uL (0.0-0.4); EOS % 2.2 % (1.0-4.0); HEMATOCRIT 37.4 % (37.0-47.0); LYMPH # 0.5 10*3/uL (1.3-4.4); LYMPH % 15.4 % (27.0-41.0); MEAN CELL VOLUME 88.2 fl (81.0-99.0); MEAN CORPUSCULAR HGB 29.2 pg (27.0-31.0); MEAN CORPUSCULAR HGB CONC 33.2 g/dl (33.0-37.0); MEAN PLATELET VOLUME 9.9 fl (9.6-12.3); MONO # 0.4 10*3/uL (0.1-1.0); MONO % 12.3 % (3.0-9.0); NEUT # 2.2 10*3/uL (2.3-7.9); NEUT % 69.2 % (47.0-73.0); PLATELET COUNT AUTOMATED 148 10*3/uL (130-400); RED BLOOD COUNT 4.24 10*6/uL (4.10-5.10); RED CELL DISTRI WIDTH 16.6 % (0-14.5); WHITE BLOOD COUNT 3.2 10*3/uL (4.8-10.8)
[2021-07-29 08:25] LABS: ALBUMIN 3.9 gm/dl (3.1-4.5); ALKALINE PHOSPHATASE 72 U/L (45-117); BUN 13 mg/dl (7-24); CHLORIDE 103 mmol/L (98-107); CREATININE 0.42 mg/dL (0.55-1.02); LDH 303 U/L (84-246); POTASSIUM 4.2 mmol/L (3.5-5.1); SGOT/AST 30 IU/L (3-35); SGPT/ALT 43 U/L (12-78); SODIUM 136 mmol/L (136-145); TOTAL PROTEIN 6.5 gm/dL (6.4-8.2)
== END | disposition home or self-care (01) ==
LOC: LAB 07:36
PROVIDERS: ATTEND Internal Medicine Hematology & Oncology
DX: Z51.11 Encounter for antineoplastic chemotherapy (principal); C85.81 Other specified types of non-Hodgkin lymphoma, lymph nodes of head, face, and neck; C91.90 Lymphoid leukemia, unspecified not having achieved remission; R11.2 Nausea with vomiting, unspecified; J90 Pleural effusion, not elsewhere classified

== ENCOUNTER → 2021-07-31 | Outpatient (CLI) | payer MEDICARE | END | disposition home or self-care (01) | LOC: CT 00:11 | PROVIDERS: ATTEND Internal Medicine Hematology & Oncology | DX: C85.81 Other specified types of non-Hodgkin lymphoma, lymph nodes of head, face, and neck (principal); C91.90 Lymphoid leukemia, unspecified not having achieved remission; J43.9 Emphysema, unspecified; K57.30 Diverticulosis of large intestine without perforation or abscess without bleeding; R16.1 Splenomegaly, not elsewhere classified; R11.2 Nausea with vomiting, unspecified; J90 Pleural effusion, not elsewhere classified; Z51.11 Encounter for antineoplastic chemotherapy ==

== ENCOUNTER → 2022-01-16 | Outpatient (CLI) | payer MEDICARE ==
[~2022-01-16] MED LIST changes: +LEVOFLOXACIN500 MG PO; +OMEPRAZOLE40 MG PO; +POTASSIUM CHLO10 ME5 PO
[2022-01-16 11:02] LABS: BASO % 0.6 % (0.0-1.0); EOS # 0.1 10*3/uL (0.0-0.4); HEMATOCRIT 27.9 % (37.0-47.0); LYMPH # 0.7 10*3/uL (1.3-4.4); LYMPH % 12.8 % (27.0-41.0); MEAN CELL VOLUME 83.8 fl (81.0-99.0); MEAN CORPUSCULAR HGB 25.2 pg (27.0-31.0); MEAN CORPUSCULAR HGB CONC 30.1 g/dl (33.0-37.0); MEAN PLATELET VOLUME 10.7 fl (9.6-12.3); MONO # 0.7 10*3/uL (0.1-1.0); MONO % 13.2 % (3.0-9.0); NEUT # 3.7 10*3/uL (2.3-7.9); PLATELET COUNT AUTOMATED 171 10*3/uL (130-400); RED BLOOD COUNT 3.33 10*6/uL (4.10-5.10); RED CELL DISTRI WIDTH 14.8 % (0-14.5); WHITE BLOOD COUNT 5.1 10*3/uL (4.8-10.8)
[2022-01-16 11:16] LABS: BUN 23 mg/dl (7-24); CHLORIDE 108 mmol/L (98-107); CREATININE 0.51 mg/dL (0.55-1.02); POTASSIUM 4.3 mmol/L (3.5-5.1); SODIUM 138 mmol/L (136-145)
== END | disposition home or self-care (01) ==
LOC: LAB 10:32
PROVIDERS: ATTEND Family Medicine
DX: J43.9 Emphysema, unspecified (principal); I70.0 Atherosclerosis of aorta; K56.609 Unspecified intestinal obstruction, unspecified as to partial versus complete obstruction; D72.810 Lymphocytopenia

== ENCOUNTER → 2022-01-20 | Outpatient (CLI) | payer MEDICARE ==
[2022-01-20 11:49] LABS: BASO % 0.4 % (0.0-1.0); EOS # 0.1 10*3/uL (0.0-0.4); EOS % 1.1 % (1.0-4.0); HEMATOCRIT 27.4 % (37.0-47.0); LYMPH # 0.6 10*3/uL (1.3-4.4); LYMPH % 10.8 % (27.0-41.0); MEAN CELL VOLUME 81.8 fl (81.0-99.0); MEAN CORPUSCULAR HGB 24.8 pg (27.0-31.0); MEAN CORPUSCULAR HGB CONC 30.3 g/dl (33.0-37.0); MEAN PLATELET VOLUME 11.1 fl (9.6-12.3); MONO # 0.6 10*3/uL (0.1-1.0); MONO % 11.5 % (3.0-9.0); NEUT # 4.2 10*3/uL (2.3-7.9); PLATELET COUNT AUTOMATED 170 10*3/uL (130-400); RED BLOOD COUNT 3.35 10*6/uL (4.10-5.10); RED CELL DISTRI WIDTH 14.9 % (0-14.5); WHITE BLOOD COUNT 5.5 10*3/uL (4.8-10.8)
[2022-01-20 12:08] LABS: BUN 16 mg/dl (7-24); CHLORIDE 103 mmol/L (98-107); CREATININE 0.52 mg/dL (0.55-1.02); LDH 300 U/L (84-246); POTASSIUM 4.4 mmol/L (3.5-5.1); SGOT/AST 32 IU/L (3-35); SGPT/ALT 30 U/L (12-78); SODIUM 132 mmol/L (136-145)
[2022-01-20 12:09] LABS: ALKALINE PHOSPHATASE 78 U/L (45-117)
== END | disposition home or self-care (01) ==
LOC: LAB 11:22
PROVIDERS: ATTEND Internal Medicine Hematology & Oncology
DX: Z51.11 Encounter for antineoplastic chemotherapy (principal); C85.81 Other specified types of non-Hodgkin lymphoma, lymph nodes of head, face, and neck; C91.90 Lymphoid leukemia, unspecified not having achieved remission; J90 Pleural effusion, not elsewhere classified

== ENCOUNTER 2022-02-08 12:02 | Inpatient (IN) | payer MEDICARE ==
[~2022-02-08] VITALS: Ht 165.1 cm; Wt 70.9 kg
[2022-02-08] MEDS ORDERED: FERROUS FUMARA324 MG PO (12:26)
[2022-02-08] MEDS ORDERED: LASIX20 MG PO (12:27)
[2022-02-08 12:28] VITALS: BP 141/59
[2022-02-08 12:54] LABS: BASO % 0.4 % (0.0-1.0); EOS # 0.1 10*3/uL (0.0-0.4); EOS % 1.3 % (1.0-4.0); HEMATOCRIT 30.4 % (37.0-47.0); LYMPH # 0.6 10*3/uL (1.3-4.4); LYMPH % 11.2 % (27.0-41.0); MEAN CELL VOLUME 79.8 fl (81.0-99.0); MEAN CORPUSCULAR HGB 23.6 pg (27.0-31.0); MEAN CORPUSCULAR HGB CONC 29.6 g/dl (33.0-37.0); MEAN PLATELET VOLUME 10.3 fl (9.6-12.3); MONO # 0.5 10*3/uL (0.1-1.0); MONO % 9.5 % (3.0-9.0); NEUT # 4.3 10*3/uL (2.3-7.9); NEUT % 77.2 % (47.0-73.0); PLATELET COUNT AUTOMATED 156 10*3/uL (130-400); RED BLOOD COUNT 3.81 10*6/uL (4.10-5.10); RED CELL DISTRI WIDTH 21.2 % (0-14.5); WHITE BLOOD COUNT 5.6 10*3/uL (4.8-10.8)
[2022-02-08 13:28] LABS: ALKALINE PHOSPHATASE 74 U/L (45-117); BUN 13 mg/dl (7-24); CHLORIDE 101 mmol/L (98-107); CREATININE 0.48 mg/dL (0.55-1.02); POTASSIUM 3.8 mmol/L (3.5-5.1); SGOT/AST 42 IU/L (3-35); SGPT/ALT 31 U/L (12-78); SODIUM 134 mmol/L (136-145); TOTAL PROTEIN 6.2 gm/dL (6.4-8.2)
[2022-02-08 14:25] VITALS: BP 127/64
[2022-02-08 16:00] VITALS: BP 122/64
[2022-02-08 20:00] VITALS: BP 123/59
[2022-02-09] VITALS: BP 121/53
[2022-02-09 05:30] LABS: ALKALINE PHOSPHATASE 65 U/L (45-117); BUN 13 mg/dl (7-24); CHLORIDE 102 mmol/L (98-107); CREATININE 0.38 mg/dL (0.55-1.02); SGOT/AST 22 IU/L (3-35); SGPT/ALT 20 U/L (12-78); SODIUM 138 mmol/L (136-145); TOTAL PROTEIN 5.2 gm/dL (6.4-8.2)
[2022-02-09 05:34] LABS: POTASSIUM 2.7 mmol/L (3.5-5.1)
[2022-02-09 06:06] LABS: BASO % 1.3 % (0.0-1.0); EOS # 0.1 10*3/uL (0.0-0.4); EOS % 3.2 % (1.0-4.0); HEMATOCRIT 26.8 % (37.0-47.0); LYMPH # 0.5 10*3/uL (1.3-4.4); LYMPH % 16.2 % (27.0-41.0); MEAN CORPUSCULAR HGB 23.9 pg (27.0-31.0); MEAN CORPUSCULAR HGB CONC 29.5 g/dl (33.0-37.0); MEAN PLATELET VOLUME 10.2 fl (9.6-12.3); MONO # 0.4 10*3/uL (0.1-1.0); MONO % 12.7 % (3.0-9.0); NEUT # 2.1 10*3/uL (2.3-7.9); NEUT % 66.3 % (47.0-73.0); PLATELET COUNT AUTOMATED 130 10*3/uL (130-400); RED BLOOD COUNT 3.31 10*6/uL (4.10-5.10); RED CELL DISTRI WIDTH 21.6 % (0-14.5); WHITE BLOOD COUNT 3.2 10*3/uL (4.8-10.8)
[2022-02-09 06:16] LABS: ACT PARTIAL THROMBO TIME 30.8 SECONDS (20.0-32.1); INTERNATIONAL NORM RATIO 1.2 (2.0-3.5)
[2022-02-09 08:00] VITALS: BP 110/50
[2022-02-09 12:00] VITALS: BP 113/50
[2022-02-09 16:00] VITALS: BP 112/50
[2022-02-09 20:00] VITALS: BP 114/49
[2022-02-10] VITALS: BP 112/50
[2022-02-10 06:30] LABS: BASO % 0.6 % (0.0-1.0); EOS # 0.1 10*3/uL (0.0-0.4); EOS % 1.7 % (1.0-4.0); HEMATOCRIT 27.7 % (37.0-47.0); LYMPH # 0.5 10*3/uL (1.3-4.4); LYMPH % 15.5 % (27.0-41.0); MEAN CELL VOLUME 80.3 fl (81.0-99.0); MEAN CORPUSCULAR HGB 24.1 pg (27.0-31.0); MEAN PLATELET VOLUME 10.3 fl (9.6-12.3); MONO # 0.4 10*3/uL (0.1-1.0); MONO % 12.4 % (3.0-9.0); NEUT # 2.4 10*3/uL (2.3-7.9); NEUT % 69.8 % (47.0-73.0); PLATELET COUNT AUTOMATED 144 10*3/uL (130-400); RED BLOOD COUNT 3.45 10*6/uL (4.10-5.10); RED CELL DISTRI WIDTH 22.5 % (0-14.5); WHITE BLOOD COUNT 3.5 10*3/uL (4.8-10.8)
[2022-02-10 06:49] LABS: BUN 12 mg/dl (7-24); CHLORIDE 103 mmol/L (98-107); CREATININE 0.41 mg/dL (0.55-1.02); POTASSIUM 3.5 mmol/L (3.5-5.1); SODIUM 137 mmol/L (136-145)
[2022-02-10 08:00] VITALS: BP 124/74
[2022-02-10 12:00] VITALS: BP 113/53
[2022-02-10 16:00] VITALS: BP 109/53
[2022-02-10 20:00] VITALS: BP 105/51
[2022-02-11] VITALS: BP 100/38
[2022-02-11 08:00] VITALS: BP 119/46
[2022-02-11] MEDS ORDERED: POTASSIUM CHLO10 ME5 PO (11:27)
[2022-02-11] MEDS ORDERED: LASIX40 MG PO (11:27)
== END 2022-02-11 12:50 | disposition home or self-care (01) | DRG 291 ==
LOC: ED 12:02 → 4E 13:57 → EDHOLD 13:57 → 4E 14:09
PROVIDERS: Internal Medicine; Physical Therapist; Student in an Organized Health Care Education/Training Program; ADMIT Emergency Medicine; ATTEND Emergency Medicine
DX: I11.0 Hypertensive heart disease with heart failure (principal); I50.33 Acute on chronic diastolic (congestive) heart failure; E43 Unspecified severe protein-calorie malnutrition; E87.1 Hypo-osmolality and hyponatremia; C91.10 Chronic lymphocytic leukemia of B-cell type not having achieved remission; I48.91 Unspecified atrial fibrillation; D50.9 Iron deficiency anemia, unspecified; I08.1 Rheumatic disorders of both mitral and tricuspid valves; R74.01 Elevation of levels of liver transaminase levels; E80.6 Other disorders of bilirubin metabolism; Z90.710 Acquired absence of both cervix and uterus; Z95.5 Presence of coronary angioplasty implant and graft; Z88.8 Allergy status to other drugs, medicaments and biological substances; Z79.82 Long term (current) use of aspirin; Z79.899 Other long term (current) drug therapy; Z68.28 Body mass index [BMI] 28.0-28.9, adult; E87.6 Hypokalemia

== ENCOUNTER → 2022-03-05 | Outpatient (CLI) | payer MEDICARE ==
[~2022-03-05] MED LIST changes: +FERROUS FUMARA324 MG PO; +LASIX40 MG PO
[2022-03-05 08:43] LABS: BASO % 0.5 % (0.0-1.0); EOS # 0.1 10*3/uL (0.0-0.4); EOS % 1.5 % (1.0-4.0); HEMATOCRIT 30.2 % (37.0-47.0); LYMPH # 0.4 10*3/uL (1.3-4.4); LYMPH % 9.5 % (27.0-41.0); MEAN CELL VOLUME 89.1 fl (81.0-99.0); MEAN CORPUSCULAR HGB 27.1 pg (27.0-31.0); MEAN CORPUSCULAR HGB CONC 30.5 g/dl (33.0-37.0); MEAN PLATELET VOLUME 9.7 fl (9.6-12.3); MONO # 0.4 10*3/uL (0.1-1.0); NEUT # 3.2 10*3/uL (2.3-7.9); NEUT % 78.3 % (47.0-73.0); PLATELET COUNT AUTOMATED 148 10*3/uL (130-400); RED BLOOD COUNT 3.39 10*6/uL (4.10-5.10); RED CELL DISTRI WIDTH 24.9 % (0-14.5); WHITE BLOOD COUNT 4.1 10*3/uL (4.8-10.8)
== END | disposition home or self-care (01) ==
LOC: LAB 07:34
PROVIDERS: ATTEND Internal Medicine Hematology & Oncology
DX: C85.81 Other specified types of non-Hodgkin lymphoma, lymph nodes of head, face, and neck (principal); R11.2 Nausea with vomiting, unspecified; J90 Pleural effusion, not elsewhere classified; D50.9 Iron deficiency anemia, unspecified; C91.90 Lymphoid leukemia, unspecified not having achieved remission

== ENCOUNTER → 2022-03-11 | Outpatient (CLI) | payer MEDICARE ==
[2022-03-11 15:19] LABS: BASO % 0.7 % (0.0-1.0); EOS # 0.2 10*3/uL (0.0-0.4); EOS % 4.1 % (1.0-4.0); HEMATOCRIT 32.4 % (37.0-47.0); LYMPH # 0.7 10*3/uL (1.3-4.4); LYMPH % 14.9 % (27.0-41.0); MEAN CORPUSCULAR HGB 27.7 pg (27.0-31.0); MEAN CORPUSCULAR HGB CONC 31.2 g/dl (33.0-37.0); MONO # 0.4 10*3/uL (0.1-1.0); MONO % 9.2 % (3.0-9.0); NEUT # 3.1 10*3/uL (2.3-7.9); NEUT % 70.9 % (47.0-73.0); PLATELET COUNT AUTOMATED 142 10*3/uL (130-400); RED BLOOD COUNT 3.64 10*6/uL (4.10-5.10); RED CELL DISTRI WIDTH 23.6 % (0-14.5); WHITE BLOOD COUNT 4.4 10*3/uL (4.8-10.8)
== END | disposition home or self-care (01) ==
LOC: LAB 14:51
PROVIDERS: ATTEND Internal Medicine Hematology & Oncology
DX: C85.81 Other specified types of non-Hodgkin lymphoma, lymph nodes of head, face, and neck (principal); J90 Pleural effusion, not elsewhere classified; D50.9 Iron deficiency anemia, unspecified; C91.90 Lymphoid leukemia, unspecified not having achieved remission; R11.2 Nausea with vomiting, unspecified; Z51.11 Encounter for antineoplastic chemotherapy

== ENCOUNTER 2022-03-16 13:12 | Emergency (ER) | payer MEDICARE ==
[~2022-03-16] VITALS: Ht 162.5 cm; Wt 68.9 kg
[2022-03-16 13:19] VITALS: BP 141/72
[2022-03-16 13:48] LABS: BASO % 0.1 % (0.0-1.0); EOS # 0.1 10*3/uL (0.0-0.4); EOS % 1.6 % (1.0-4.0); HEMATOCRIT 33.2 % (37.0-47.0); LYMPH # 0.4 10*3/uL (1.3-4.4); LYMPH % 5.1 % (27.0-41.0); MEAN CELL VOLUME 88.3 fl (81.0-99.0); MEAN CORPUSCULAR HGB 27.9 pg (27.0-31.0); MEAN CORPUSCULAR HGB CONC 31.6 g/dl (33.0-37.0); MEAN PLATELET VOLUME 9.9 fl (9.6-12.3); MONO # 0.6 10*3/uL (0.1-1.0); MONO % 8.8 % (3.0-9.0); NEUT # 5.9 10*3/uL (2.3-7.9); NEUT % 84.1 % (47.0-73.0); PLATELET COUNT AUTOMATED 142 10*3/uL (130-400); RED BLOOD COUNT 3.76 10*6/uL (4.10-5.10); RED CELL DISTRI WIDTH 22.2 % (0-14.5); WHITE BLOOD COUNT 7.1 10*3/uL (4.8-10.8)
[2022-03-16 14:10] LABS: ALKALINE PHOSPHATASE 98 U/L (45-117); BUN 14 mg/dl (7-24); CHLORIDE 99 mmol/L (98-107); CREATININE 0.33 mg/dL (0.55-1.02); POTASSIUM 3.9 mmol/L (3.5-5.1); SGOT/AST 20 IU/L (3-35); SGPT/ALT 29 U/L (12-78); SODIUM 130 mmol/L (136-145); TOTAL PROTEIN 5.9 gm/dL (6.4-8.2)
[2022-03-16 14:32] LABS: BILIRUBIN Negative (Negative); BLOOD Negative (Negative); CLARITY Clear (Clear); COLOR Yellow (Yellow); GLUCOSE Negative (Negative); KETONE Negative (Negative); LEUKO ESTERASE Negative (Negative); NITRITE Negative (Negative); UROBILINOGEN 0.2 E.U./dl (0.0-1.0)
[2022-03-16 14:39] LABS: WBC 0-2 wbc/hpf (0-5)
[2022-03-16] MEDS ORDERED: ZOFRAN4 MG PO (17:24)
[2022-03-16] MEDS ORDERED: TRAMADOL HCL50 MG PO ×2 (17:24→17:26)
== END 2022-03-16 17:41 | disposition home or self-care (01) ==
LOC: ED 13:12
PROVIDERS: Nurse Practitioner Family
DX: S39.012A Strain of muscle, fascia and tendon of lower back, initial encounter (principal); M54.6 Pain in thoracic spine; L25.9 Unspecified contact dermatitis, unspecified cause; Z88.1 Allergy status to other antibiotic agents; Z88.8 Allergy status to other drugs, medicaments and biological substances; Z79.899 Other long term (current) drug therapy; Z79.82 Long term (current) use of aspirin; Z98.890 Other specified postprocedural states; Z90.710 Acquired absence of both cervix and uterus; Z90.89 Acquired absence of other organs